=== PATIENT | female | born 1960 | race Caucasian/White ===

== ENCOUNTER → 2018-07-14 | Outpatient (CLI) | payer OTHER ==
--- NOTE | 2018-07-14 16:11 | RAD ---
Radionuclide gastric emptying study, 07/14/2018: HISTORY: Epigastric pain, esophageal spasm The study was performed utilizing a solid test meal radiolabeled with 2.0 mCi of technetium 99m sulfur colloid. The following gastric retention values were obtained: 1 hour-52 percent 2 hours-35 percent 3 hours-6 percent 4 hours-0 percent These values are in the normal range. A T1/2 of 64 minutes was also calculated, also in the normal range. IMPRESSION: Normal gastric emptying study. Electronically signed by: Gerry Lei MD (07/14/2018 4:07 PM) [facility]
== END | disposition home or self-care (01) ==
LOC: NM 09:31
PROVIDERS: ATTEND Internal Medicine Gastroenterology
DX: K22.4 Dyskinesia of esophagus (principal); R10.13 Epigastric pain
CPT/HCPCS: 78264; A9541